=== PATIENT | male | born 1995 | race Caucasian/White ===

== ENCOUNTER 2024-09-05 19:30 | Inpatient (IN) | payer MEDICAID, OTHER ==
[~2024-09-05] VITALS: Ht 182.9 cm; Wt 65.8 kg
[2024-09-05] MEDS ORDERED: MAG HYDROX/AL HYDROX/SIMETH 30 ML UDC ONE (20:01)
[2024-09-05] MEDS ORDERED: KETOROLAC TROMETHAMINE 15 MG/ML VIAL ONE (20:01)
[2024-09-05] MEDS ORDERED: LIDOCAINE VISCOUS 2% UD 15 ML UDC ONE (20:01)
[2024-09-05] MEDS ORDERED: FAMOTIDINE/PF INJ 20 MG/2 ML VIAL IV ONE (20:01)
[2024-09-05] MEDS: IV NS 0.9% 500 ML BAG IV ONE ×2 (20:12→21:21)
[2024-09-05] MEDS: KETOROLAC TROMETHAMINE 15 MG/ML VIAL IV ONE (20:13)
[2024-09-05] MEDS: FAMOTIDINE/PF INJ 20 MG/2 ML VIAL IV ONE (20:13)
[2024-09-05] MEDS: LIDOCAINE VISCOUS 2% UD 15 ML UDC MM ONE (20:13)
[2024-09-05] MEDS: MAG HYDROX/AL HYDROX/SIMETH 30 ML UDC PO ONE (20:14)
[2024-09-05 20:20] LABS: BASOPHILS % (AUTO) 0.3 % (0.0-2.0); EOSINOPHILS % (AUTO) 0.1 % (0.0-6.0); HEMATOCRIT 44 % (39-51); HEMOGLOBIN 15.2 g/dL (13.5-17.5); LYMPHOCYTES # (AUTO) 1.4 K/uL (0.8-4.8); LYMPHOCYTES % (AUTO) 11.9 % (20.0-44.0); MEAN CORPUSCULAR HEMOGLOBIN 31 PG (26.0-33.0); MEAN CORPUSCULAR HGB CONC 35 g/dl (31.0-36.0); MEAN CORPUSCULAR VOLUME 90 fL (80-96); MONOCYTES # (AUTO) 0.5 K/uL (0.1-1.30); MONOCYTES % (AUTO) 3.9 % (2.0-12.0); NEUTROPHILS # (AUTO) 10.1 K/uL (1.8-8.9); NEUTROPHILS % (AUTO) 83.8 % (43.0-81.0); PLATELET COUNT (AUTO) 210 K/uL (150-450); RED CELL DISTRIBUTION WIDTH 12.9 % (11.5-15.0)
[2024-09-05 20:31] LABS: CALCIUM, SERUM 9.4 mg/dL (8.5-10.1); CARBON DIOXIDE 26 mmol/L (21-32); CHLORIDE 99 mmol/L (98-107); CREATININE 0.8 mg/dL (0.6-1.3); GLUCOSE 115 mg/dL (74-106); POTASSIUM 3.5 mmol/L (3.5-5.1); SODIUM SERUM 137 mmol/L (136-145); UREA NITROGEN, BLOOD 11 mg/dL (7-18)
[2024-09-05 20:37] LABS: ALANINE AMINOTRANSFERASE 99 U/L (12-78); ALBUMIN 3.9 g/dL (3.4-5.0); ALKALINE PHOSPHATASE 215 U/L (46-116); ASPARTATE AMINOTRANSFERASE 117 U/L (15-37); BILIRUBIN,DIRECT 0.6 mg/dL (0.0-0.2); BILIRUBIN,TOTAL 1.6 mg/dL (0.2-1.0); TOTAL PROTEIN, SERUM 7.8 g/dL (6.4-8.2)
[2024-09-05 20:38] LABS: LIPASE > 375 U/L (16-77)
[2024-09-05 21:24] VITALS: O2SAT 97
[2024-09-05] MEDS ORDERED: MAG HYDROX/AL HYDROX/SIMETH 30 ML UDC PO PRN (22:00)
[2024-09-05] MEDS ORDERED: ONDANSETRON HCL/PF 4 MG/2 ML VIAL IVP PRN (22:00)
[2024-09-05] MEDS ORDERED: Z GUARD REMEDY 4 OZ OINT TP PRN (22:00)
[2024-09-05] MEDS ORDERED: MAGNESIUM HYDROXIDE 30 ML UDC PO PRN (22:00)
[2024-09-05] MEDS ORDERED: ACETAMINOPHEN 325 MG TABLET PO PRN (22:00)
[2024-09-05] MEDS ORDERED: MORPHINE SULFATE INJ 2 MG/ML DISP.SYRIN IV PRN (22:00)
[2024-09-05] MEDS ORDERED: LORAZEPAM 0.5 MG TABLET PO PRN (22:00)
[2024-09-05 22:10] VITALS: BP 123/83; TEMP 100.9; O2SAT 95
[2024-09-05] MEDS: IV NS 0.9% 1,000 ML IV PRN (22:19)
[2024-09-06 06:28] LABS: BASOPHILS % (AUTO) 0.2 % (0.0-2.0); EOSINOPHILS % (AUTO) 0.4 % (0.0-6.0); HEMATOCRIT 36 % (39-51); HEMOGLOBIN 12.4 g/dL (13.5-17.5); LYMPHOCYTES # (AUTO) 2.4 K/uL (0.8-4.8); LYMPHOCYTES % (AUTO) 27.4 % (20.0-44.0); MEAN CORPUSCULAR HEMOGLOBIN 31 PG (26.0-33.0); MEAN CORPUSCULAR HGB CONC 35 g/dl (31.0-36.0); MEAN CORPUSCULAR VOLUME 89 fL (80-96); MONOCYTES # (AUTO) 0.6 K/uL (0.1-1.30); MONOCYTES % (AUTO) 6.4 % (2.0-12.0); NEUTROPHILS # (AUTO) 5.8 K/uL (1.8-8.9); NEUTROPHILS % (AUTO) 65.6 % (43.0-81.0); PLATELET COUNT (AUTO) 159 K/uL (150-450); RED BLOOD CELL COUNT(AUTO) 4.02 MIL/uL (4.5-6.0); RED CELL DISTRIBUTION WIDTH 12.8 % (11.5-15.0); WHITE BLOOD COUNT (AUTO) 8.8 K/uL (4.3-11.0)
[2024-09-06 07:20] LABS: CALCIUM, SERUM 8.1 mg/dL (8.5-10.1); CREATININE 0.6 mg/dL (0.6-1.3); MAGNESIUM 1.7 mg/dL (1.8-2.4); PHOSPHORUS 3.5 mg/dL (2.5-4.9)
[2024-09-06 08:00] VITALS: BP 118/88; TEMP 98.2; O2SAT 96
[2024-09-06] MEDS: PANTOPRAZOLE 40 MG TABLET.DR PO SCH (08:51)
[2024-09-06] MEDS: THIAMINE HCL 100 MG TABLET PO SCH (08:51)
[2024-09-06] MEDS: MAGNESIUM OXIDE 400 MG TABLET PO ONE (09:37)
[2024-09-06] MEDS: POTASSIUM CHLORIDE 20 MEQ TAB.PRT.SR PO SCH (09:37)
== END 2024-09-06 13:20 | disposition home or self-care (01) | DRG 282 ==
LOC: ER 19:33 → MEDSG1 21:50 → MED 22:00
PROVIDERS: ADMIT Nurse Practitioner Acute Care; ATTEND Student in an Organized Health Care Education/Training Program
DX: K85.90 Acute pancreatitis without necrosis or infection, unspecified (principal); E87.29 Other acidosis; K76.0 Fatty (change of) liver, not elsewhere classified; F17.210 Nicotine dependence, cigarettes, uncomplicated; K82.8 Other specified diseases of gallbladder; R74.01 Elevation of levels of liver transaminase levels; D72.829 Elevated white blood cell count, unspecified; E80.6 Other disorders of bilirubin metabolism; F12.90 Cannabis use, unspecified, uncomplicated; F32.A Depression, unspecified; F10.20 Alcohol dependence, uncomplicated
CPT/HCPCS: 36415; 76705-TC; 80048-TC; 80061-TC; 80076-TC; 83690-TC; 83735-TC; 84100-TC; 85025-TC; A4223; G0378; J1308; J1885; J7030; J7040

== ENCOUNTER 2025-03-01 10:18 | Emergency (ER) | payer MEDICAID, OTHER ==
[~2025-03-01] VITALS: Ht 154.9 cm; Wt 83.9 kg
[2025-03-01] MEDS ORDERED: KETOROLAC TROMETHAMINE INJ 30 MG/ML VIAL ONE (11:53)
[2025-03-01] MEDS ORDERED: ONDANSETRON HCL/PF 4 MG/2 ML VIAL ONE (11:53)
[2025-03-01] MEDS: IV NS 0.9% 1,000 ML BAG IV ONE (12:04)
[2025-03-01 12:11] LABS: PLATELET COUNT (AUTO) 362 K/uL (150-450); RED BLOOD CELL COUNT(AUTO) 5.76 MIL/uL (4.5-6.0); RED CELL DISTRIBUTION WIDTH 13.3 % (11.5-15.0); WHITE BLOOD COUNT (AUTO) 17.2 K/uL (4.3-11.0)
[2025-03-01] MEDS: ONDANSETRON HCL/PF 4 MG/2 ML VIAL IVP ONE (12:14)
[2025-03-01] MEDS: KETOROLAC TROMETHAMINE 15 MG/ML VIAL IV ONE (12:16)
[2025-03-01 12:22] LABS: SODIUM SERUM 140 mmol/L (136-145)
[2025-03-01 12:26] LABS: ASPARTATE AMINOTRANSFERASE 28 U/L (15-37); CALCIUM, SERUM 9.8 mg/dL (8.5-10.1); CREATININE 0.9 mg/dL (0.6-1.3); TOTAL PROTEIN, SERUM 8.6 g/dL (6.4-8.2); UREA NITROGEN, BLOOD 13 mg/dL (7-18)
[2025-03-01 12:27] LABS: ALCOHOL, BLOOD < 3 mg/dL (0-10)
[2025-03-01 13:29] LABS: AMPHETAMINE, URINE NEGATIVE (NEGATIVE); BARBITURATE, URINE NEGATIVE (NEGATIVE); BENZODIAZEPINE, URINE NEGATIVE (NEGATIVE); COCCAINE, URINE NEGATIVE (NEGATIVE); OPIATE, URINE NEGATIVE (NEGATIVE)
[2025-03-01 13:31] LABS: CANNABINOID, URINE POSITIVE (NEGATIVE)
[2025-03-01 21:02] VITALS: BP 112/60; TEMP 98; O2SAT 96
== END 2025-03-01 22:10 | disposition short-term general hospital (02) ==
LOC: ER 10:22
DX: K85.90 Acute pancreatitis without necrosis or infection, unspecified (principal); Z87.19 Personal history of other diseases of the digestive system; Z79.899 Other long term (current) drug therapy
CPT/HCPCS: 99285; 96374; 96361; 96375; 93005; 71045; 74176; 85025; 80048; 83690; 80076; 36415; 80320; 80307; J1885; J2405; J7030; G0480

== ENCOUNTER 2025-03-25 22:49 | Emergency (ER) | payer OTHER ==
[~2025-03-25] VITALS: Ht 180.3 cm; Wt 79.4 kg
[2025-03-26] MEDS ORDERED: MORPHINE SULFATE INJ 4 MG/ML DISP.SYRIN ONE ×2 (01:57→04:38)
[2025-03-26] MEDS ORDERED: ONDANSETRON HCL/PF 4 MG/2 ML VIAL ONE ×2 (01:57→04:38)
[2025-03-26] MEDS: IV NS 0.9% 1,000 ML BAG IV ONE (01:58)
[2025-03-26] MEDS: ONDANSETRON HCL/PF 4 MG/2 ML VIAL IVP ONE (01:58)
[2025-03-26] MEDS: MORPHINE SULFATE INJ 2 MG/ML DISP.SYRIN IV ONE ×2 (01:58→04:39)
[2025-03-26 02:08] LABS: PLATELET COUNT (AUTO) 335 K/uL (150-450); RED BLOOD CELL COUNT(AUTO) 5.49 MIL/uL (4.5-6.0); RED CELL DISTRIBUTION WIDTH 13.9 % (11.5-15.0); WHITE BLOOD COUNT (AUTO) 16.9 K/uL (4.3-11.0)
[2025-03-26 02:17] LABS: CALCIUM, SERUM 9.7 mg/dL (8.5-10.1); CREATININE 0.8 mg/dL (0.6-1.3); SODIUM SERUM 140 mmol/L (136-145); UREA NITROGEN, BLOOD 12 mg/dL (7-18)
[2025-03-26 02:44] LABS: ASPARTATE AMINOTRANSFERASE 27 U/L (15-37); TOTAL PROTEIN, SERUM 8.2 g/dL (6.4-8.2)
[2025-03-26 02:54] LABS: APPEARANCE,URINE CLEAR (CLEAR); BLOOD, URINE NEGATIVE Ery/uL (NEGATIVE); LEUKOCYTE ESTERASE ,URINE NEGATIVE (NEGATIVE); NITRITE, URINE NEGATIVE (NEGATIVE); UGLUCOSE NEGATIVE (NEGATIVE)
[2025-03-26 03:19] LABS: ADD URINE CULTURE NO; SQUAMOUS EPITHELIAL CELL,UR 0-2 /HPF (None Seen)
[2025-03-26] MEDS ORDERED: ONDA4TAB11 PO (04:37)
[2025-03-26] MEDS ORDERED: IBUP-1957 PO (04:37)
[2025-03-26] MEDS: ONDANSETRON HCL/PF - ER 4 MG/2 ML VIAL IV ONE (04:39)
[2025-03-26 05:01] VITALS: TEMP 98.6
[2025-03-26 05:25] VITALS: BP 119/75; O2SAT 96
== END 2025-03-26 05:46 | disposition home or self-care (01) ==
LOC: ER 22:50
DX: K85.90 Acute pancreatitis without necrosis or infection, unspecified (principal); F10.10 Alcohol abuse, uncomplicated; Z87.19 Personal history of other diseases of the digestive system; Z91.048 Other nonmedicinal substance allergy status; Y90.9 Presence of alcohol in blood, level not specified
CPT/HCPCS: 99284; 96374; 96361; 96375; 96376; 85025; 80048; 83690; 80076; 81001; 36415; J2270 ×2; J2405 ×3; J7030